=== PATIENT | female | born 1960 | race Caucasian/White ===

== ENCOUNTER 2021-05-09 13:18 | Emergency (ER) | payer BC ==
--- NOTE | 2021-05-09 13:24 | ERPHSYRPT ---
- History of Present Illness Time Seen by Provider: 05/09/21 13:24 Source: patient Exam Limitations: no limitations Physician History: This is an obese 60-year-old white female patient of Dr. Che who rolled her ankle last evening. She can bear weight but it hurts to do so. This morning the pain was even worse. Method of Injury: twisted Occurred: yesterday Quality: aching, throbbing Severity of Pain-Max: mild (To moderate) Severity of Pain-Current: mild (To moderate) Lower Extremities Pain: foot: right, ankle: right Modifying Factors: Improves With: movement Associated Symptoms: other (Hurts to bear weight but can do so) Allergies/Adverse Reactions: No Known Drug Allergies Allergy (Verified 05/09/21 13:22) Home Medications: Abatacept/Maltose 250 MG [Orencia 250 MG Vial] 250 mg IV .MONTHLY 10/31/13 [History] Levothyroxine Sodium 25 Mcg [Synthroid 25 Mcg] 50 mcg PO DAILY 10/31/13 [History] Phenytoin Sod Extended 100 mg* [Dilantin 100 MG] 100 mg PO TID 10/31/13 [History] Phenytoin Sod Extended 30 mg [Dilantin 30 MG] 30 mg PO DAILY 10/31/13 [History] Sulfasalazine 500 mg [Azulfidine 500 mg] 1,000 mg PO BID 10/31/13 [History] Hx Tetanus, Diphtheria Vaccination/Date Given: Yes (2013) Hx Influenza Vaccination/Date Given: No Hx Pneumococcal Vaccination/Date Given: No Travel Risk - International Travel Have you traveled outside of the country in past 3 weeks: No - Coronavirus Screening Are you exhibiting any of the following symptoms?: No Close contact with a COVID-19 positive Pt in past 14-21 Days: No - Review of Systems Constitutional: No Symptoms Eyes: No Symptoms Ears, Nose, & Throat: No Symptoms Respiratory: No Symptoms Cardiac: No Symptoms Abdominal/Gastrointestinal: No Symptoms Genitourinary Symptoms: No Symptoms Musculoskeletal: Injury (Right ankle and foot) Skin: No Symptoms Neurological: No Symptoms Psychological: No Symptoms Endocrine: No Symptoms Hematologic/Lymphatic: No Symptoms Immunological/Allergic: No Symptoms All Other Systems: Reviewed and Negative - Past Medical History Pertinent Past Medical History: Yes Neurological History: Seizures ENT History: No Pertinent History Cardiac History: No Pertinent History Respiratory History: No Pertinent History Endocrine Medical History: Hypothyroidism Musculoskeletal History: Rheumatoid Arthritis GI Medical History: No Pertinent History History: No Pertinent History Psycho-Social History: No Pertinent History Female Reproductive Disorders: Fibroids, Menstrual Problems - Past Surgical History Past Surgical History: Yes Neuro Surgical History: No Pertinent History Cardiac: No Pertinent History Respiratory: No Pertinent History Gastrointestinal: No Pertinent History Genitourinary: No Pertinent History Musculoskeletal: Orthopedic Surgery Female Surgical History: Hysterectomy Other Surgical History: herinated disc surgery - Social History Smoking Status: Current every day smoker How long have you smoked: 35 Exposure to second hand smoke: Yes Drug Use: none Patient Lives Alone: No - Nursing Vital Signs Nursing Vital Signs: Initial Vital Signs Temperature 98.0 F 05/09/21 13:25 Pulse Rate 93 H 05/09/21 13:25 Respiratory Rate 18 05/09/21 13:25 Blood Pressure 166/90 05/09/21 13:25 O2 Sat by Pulse Oximetry 97 05/09/21 13:25 Pain Scale Pain Intensity 4 - Physical Exam General Appearance: no apparent distress, alert, anxiety Eyes, Ears, Nose, Throat Exam: normal ENT inspection, moist mucous membranes Neck Exam: normal inspection, non-tender Cardiovascular/Respiratory Exam: chest non-tender, no respiratory distress Gastrointestinal/Abdominal Exam: non-tender Back Exam: normal inspection, normal range of motion, No CVA tenderness, No vertebral tenderness Hips Exam: bilateral: non-tender, normal inspection, normal range of motion, no evidence of injury Legs Exam: bilateral leg: non-tender, normal inspection, normal range of motion, no evidence of injury Knees Exam: bilateral knee: non-tender, normal inspection, normal range of motion, no evidence of injury Ankle Exam: right ankle: pain, soft tissue tenderness, left ankle: non-tender, bilateral ankle: normal inspection, normal range of motion, no evidence of injury Foot Exam: right foot: pain, soft tissue tenderness, left foot: non-tender, bilateral foot: normal inspection, normal range of motion, no evidence of injury Neuro/Tendon Exam: normal sensation, normal motor functions, normal tendon functions Mental Status Exam: alert, oriented x 3, cooperative Skin Exam: normal color, warm, dry SpO2 Interpretation: normal O2 Delivery: Room Air - Course Nursing assessment & vital signs reviewed: Yes Ordered Tests: Active Orders 24 hr Category Date Time Status ANKLE (3 VIEWS) Stat Exams 05/09/21 Completed FOOT (MINIMUM 3 VIEWS) Stat Exams 05/09/21 Completed - Progress Progress: unchanged, pain not gone completely Progress Note: 05/09/21 13:55 X-ray of right foot reveals no acute fracture or dislocation. X-ray of right ankle reveals no acute fracture dislocation. Counseled pt/family regarding: diagnosis, need for follow-up, rad results - Departure Departure Disposition: Home Clinical Impression: Right ankle sprain Condition: Stable Critical Care Time: No Referrals: REGINALD CHE MD [Primary Care Provider] - Follow up/PCP as directed Additional Instructions: Ice pack to area 3 times a day for the next 48 hours. Use the Jean wrap for compression and pain control. Add Tylenol and ibuprofen for pain control. If pain persists, follow-up with Dr. Mane the manager training and development here at [facility].
[2021-05-09 13:33] VITALS: BP 166/90; PULSE 93; O2SAT 97
--- NOTE | 2021-05-09 13:52 | XRAY ---
Indication: Pain following injury. Comparison: None 3 view right ankle demonstrates mild osteopenia, tiny spurring medial/lateral malleolus, and small posterior/plantar heel spurs. No other bony, articular, or soft tissue abnormalities.
--- NOTE | 2021-05-09 13:54 | XRAY ---
Indication: Pain following injury. Comparison: None 3 nonweightbearing views right foot demonstrates mild osteopenia and small heel spurs. No other bony, articular, or soft tissue abnormalities.
== END 2021-05-09 14:11 | disposition home or self-care (01) ==
LOC: ED 13:18
DX: S93.401A Sprain of unspecified ligament of right ankle, initial encounter (principal); W18.40XA Slipping, tripping and stumbling without falling, unspecified, initial encounter; Z72.0 Tobacco use; Z79.899 Other long term (current) drug therapy
CPT/HCPCS: 73610; 73630; 99283

== ENCOUNTER 2022-01-15 05:58 | Day surgery (SDC) | payer BC ==
[2022-01-15] MEDS ORDERED: Lactated Ringers 1,000 ML IV SCH (06:30)
[2022-01-15] MEDS ORDERED: Xylocaine-Mpf 2% 5 Ml Vial ONE (07:58)
[2022-01-15] MEDS ORDERED: DIPRIVAN 200 MG/20 ML IV ONE (07:58)
[2022-01-15 09:17] VITALS: BP 142/73; PULSE 82; O2SAT 92
--- NOTE | 2022-01-15 11:49 | OP ---
SURGERY DATE/TIME: 01/15/2022 0802 PREOPERATIVE DIAGNOSIS: Screening exam. POSTOPERATIVE DIAGNOSIS: Rectal polyp. PROCEDURE: Colonoscopy with cold forceps biopsy. SURGEON: Dr. Alfred Roberts. ANESTHESIA: MAC. Medications given by anesthesia department. HISTORY: The patient is a 61-year-old white female presenting now for screening colonoscopy. The patient was appraised of the risks of the procedure including the risk of perforation, phlebitis, untoward reaction to medication, bleeding and missed lesions. The patient verbalized her understanding and desired to have the procedure performed. DESCRIPTION OF PROCEDURE: The patient was given the medications by the anesthesia department. She had continuous pulse oximetry, ECG monitoring, intermittent blood pressure monitoring during the examination. She was placed in the left lateral decubitus position. A digital rectal examination was performed and revealed normal anal sphincter tone and no masses. The flexible Olympus pediatric colonoscope was used to intubate the rectum. A view of the colon was developed sequentially to the cecum. Upon insertion and withdrawal, including a retroflex view in the rectum, was noted a small rectal polyp this was destroyed using cold forceps biopsy with multiple passes of the same to completely destroy the lesion. The scope was removed from the patient who tolerated the procedure well and was sent back to OP recovery in good condition. The prep was noted to be fair. There was some solid stool left in the colon but not really precluding a full evaluation of the colon.
== END 2022-01-15 09:25 | disposition home or self-care (01) ==
LOC: SDC 05:58
PROVIDERS: ATTEND Family Medicine
DX: Z12.11 Encounter for screening for malignant neoplasm of colon (principal); K63.5 Polyp of colon
CPT/HCPCS: J2704